=== PATIENT | female | born 1970 | race Caucasian/White ===

== ENCOUNTER 2016-10-31 06:00 | Emergency (ER) | payer SELFPAY ==
[~2016-10-31] VITALS: Ht 160 cm; Wt 60.0 kg
[2016-10-31 06:01] VITALS: BP 121/69; PULSE 69; RESP 16; TEMP 98; O2SAT 98
--- NOTE | 2016-10-31 06:28 | PD ---
HPI Chief Complaint: Eye Problems/Injury Time Seen by Provider: 06:25 Travel History International Travel<30 days: No Contact w/Intl Traveler<30days: No Traveled to known affect area: No History of Present Illness HPI Patient comes in complaining of subconjunctival hemorrhage in the left eye that she awoke with this morning. Patient states she had a small spot she noticed a week ago that almost cleared up her when she awoke morning having some pain and burning in her left eye causing some blurriness as well and was noted to have this large area of redness in the temporal aspect of her left eye. Patient states that she's been taking ibuprofen over the past week after she gave up Diet Coke for Lent has been having caffeine headaches since. Denies any nausea , vomiting, contact lens use, fevers, eye surgeries, coughing, sneezing, or known trauma. [facility] Past Medical History Medical History: Denies Significant Hx Social History Alcohol Use: Yes Tobacco Use: No Substance Use: No Allergies-Medications (Allergen,Severity, Reaction): Coded Allergies: Darvocet-N 100 (Verified Allergy, Severe, NAUSEA, 10/31/16) Morphine (Verified Allergy, Severe, SEVERE VOMITTING, 10/31/16) Tamiflu (Verified Allergy, Severe, HIVES, 10/31/16) Adhesives (Verified Allergy, Unknown, 10/31/16) Reported Meds & Prescriptions Reported Meds & Active Scripts Active No Active Prescriptions or Reported Medications Review of Systems Except as stated in HPI: all other systems reviewed are Neg Physical Exam Narrative GENERAL: Well-developed, well nourished, in no acute distress, and non-ill appearing. SKIN: Warm and dry. HEAD: Atraumatic. Normocephalic. EYES: Pupils equal and round. EOMI. No scleral icterus. No injection or drainage. Subconjunctival hemorrhage noted left temporal aspect. There is no hyphema or foreign body appreciated. ENT: No nasal bleeding or discharge. Mucous membranes pink and moist. NECK: Trachea midline. Supple. No nuclear rigidity. RESPIRATORY: No accessory muscle use. No respiratory distress. MUSCULOSKELETAL: No obvious deformities. No clubbing. No cyanosis. No edema. Full range of motion. NEUROLOGICAL: Awake and alert. No obvious cranial nerve deficits. Motor grossly within normal limits. Normal speech. PSYCHIATRIC: Appropriate mood and affect; insight and judgment normal. Data Data Last Documented VS Vital Signs Date Time Temp Pulse Resp B/P Pulse Ox O2 Delivery O2 Flow Rate FiO2 10/31/16 06:01 98.0 69 16 121/69 98 Room Air Orders Proparacaine 0.5% Opth Soln (Alcaine 0.5 (10/31/16 06:30) Ondansetron Odt (Zofran Odt) (10/31/16 07:30) MDM Medical Decision Making Medical Screen Exam Complete: Yes Emergency Medical Condition: Yes Differential Diagnosis Subconjunctival hemorrhage, conjunctivitis, abrasion, laceration, foreign body, other Narrative Course Patient was seen and examined. Patient was signed out to Tori BERRIOS, pending ophthalmology consult. Please see her documentation for final diagnosis and disposition Procedures Procedure Narrative Verbal consent was obtained. Affected eye was anesthetized using proparacaine. Fluorescein staining and Wood lamp exam performed with no uptake seen. Negative Diana sign. No hyphema, hyperemia, or rust ring. Eyelid was everted with no foreign body noted. No tenderness bilateral temporal arteries to palpation. IOP was attempted multiple times with multiple Darinel-Pen's without success. Patient tolerated procedure well. Visual acuity was obtained and found to be 20/50 OS and 20/25 OD. Scripts No Active Prescriptions or Reported Meds Alberto Ghosh Oct 31, 2016 06:28
[2016-10-31] MEDS ORDERED: PROPARACAINE HCL 0.5% OPHT SOLN 15 ML BTL LEFT EYE ONE (06:30)
[2016-10-31] MEDS ORDERED: ONDANSETRON ODT 4 MG TAB PO ONE (07:30)
--- NOTE | 2016-10-31 07:55 | PD ---
Physical Exam Date Seen by Provider: Oct 31, 2016 Time Seen by Provider: 07:50 Narrative 38-year-old female presents to the emergency department for evaluation of subconjunctival hemorrhage to the left eye that she awoke with this morning. Patient was originally seen by CECILIO Mendoza. He was unable to get IOP so he handed the patient off to me. The patient states she woke up this morning with redness to her left eye. She does report pain to the left eye and behind her left eye. Patient does report a history of headaches and states she has had a headache for the past week. She did give up diet Coke for Lent. Patient currently rates headache 4/10. It is not any worse than her typical headaches. She states that the pain in her left eye however is not typical for her. Patient denies any history of eye problems. She does not use contact lenses. She has no other complaints at this time. She has no chronic medical problems and takes no prescribed medications. GENERAL: Well-nourished, well-developed female patient, ambulatory. Afebrile. SKIN: Focused skin assessment warm/dry. HEAD: Normocephalic. Atraumatic. EYES: No scleral icterus. No injection or drainage. PERRLA. EOM intact. Patient have subconjunctival hemorrhage noted to the left temporal aspect. No hyphema. Fluorescein examination is negative in the left eye. IOP is 21 in the right eye and 14 in the left eye. Visual acuity is 20/50 left eye and 20/ 25 in the right eye. NECK: Supple, trachea midline. No JVD or lymphadenopathy. CARDIOVASCULAR: Regular rate and rhythm without murmurs, gallops, or rubs. RESPIRATORY: Breath sounds equal bilaterally. No accessory muscle use. Lungs sounds are clear to auscultation. GASTROINTESTINAL: Abdomen soft, non-tender, nondistended. MUSCULOSKELETAL: No cyanosis, or edema. BACK: Nontender without obvious deformity. No CVA tenderness. Data Data Last Documented VS Vital Signs Date Time Temp Pulse Resp B/P Pulse Ox O2 Delivery O2 Flow Rate FiO2 10/31/16 06:01 98.0 69 16 121/69 98 Room Air Orders Proparacaine 0.5% Opth Soln (Alcaine 0.5 (10/31/16 06:30) Ondansetron Odt (Zofran Odt) (10/31/16 07:30) [facility] Medical Record Reviewed: Yes Supervised Visit with BALJINDER: Yes Differential Diagnosis Subconjunctival hemorrhage versus glaucoma versus conjunctivitis versus laceration Narrative Course 46-year-old female presents to the emergency department for evaluation of 74 hemorrhage to the left eye. IOP is 21 in the right eye and 14 in the left eye. Fluorescein examination is negative. However, patient does complaint of pain to the left eye which is not typical for subconjunctival hemorrhages. Due to this, I have paged ophthalmology. [employer] Manager is paged at [phone] - I spoke to Dr. Kidd, wharf worker electronics processor, who will see her in the office. Patient will be discharged with Dr. Kidd's name and number. She is to follow-up. She verbalizes agreement and will call today she leaves the ER. Patient to return for any acute worsening of symptoms. She verbalizes agreement and understanding. Diagnosis Primary Impression: Subconjunctival hemorrhage of left eye Referrals: Mikayla Kidd MD call for appointment Patient Instructions: General Instructions, Subconjunctival Hemorrhage (ED) Additional Instruction: Please follow up with Dr. Kidd. Her name and number is attached this paperwork. Please call her office this morning for an appointment. Return to the emergency department for any acute worsening of symptoms. Med/Other Pt SpecificInfo: No Change to Meds Disposition: 01 DISCHARGE HOME Condition: Stable Tori Kraus YASH Oct 31, 2016 07:55
== END 2016-10-31 09:25 | disposition home or self-care (01) ==
LOC: NEPB 06:00
DX: H11.32 Conjunctival hemorrhage, left eye (principal); F17.210 Nicotine dependence, cigarettes, uncomplicated
CPT/HCPCS: 99283